=== PATIENT | male | born 1975 ===

== ENCOUNTER 2019-03-22 05:50 | Day surgery (SDC) | payer OTHER | END 2019-03-22 10:00 | disposition home or self-care (01) | LOC: AMB-ENDOS 05:50 | DX: D12.2 Benign neoplasm of ascending colon (principal); K57.32 Diverticulitis of large intestine without perforation or abscess without bleeding; K57.30 Diverticulosis of large intestine without perforation or abscess without bleeding; K64.0 First degree hemorrhoids ==

== ENCOUNTER 2021-12-10 14:53 | Outpatient (CLI) | payer OTHER | END 2021-12-10 15:02 | disposition home or self-care (01) | LOC: LAB 14:53 | PROVIDERS: ATTEND Urology | DX: N30.00 Acute cystitis without hematuria (principal) ==